=== PATIENT | male | born 2000 | race Caucasian/White ===

== ENCOUNTER 2020-10-23 12:56 | Emergency (ER) | payer BC ==
[~2020-10-23] VITALS: Ht 182.9 cm; Wt 90.7 kg
[2020-10-23] MEDS ORDERED: ONDANSETRON HCL/PF 4 MG/2 ML VIAL ONE (13:20)
--- NOTE | 2020-10-23 13:26 | NUR ---
BIB SELF C/O VOMITING X6 TODAY. PT AAOX4, VSS. RR EVEN & UNLABORED. DENIES CP, SOB, DIZZINESS AT THIS TIME. PT SEEN & EVAL'D BY DR. STRATTON. MEDICATED ORDERED, PT JEREMY WELL. WILL CONT TO MONITOR.
[2020-10-23] MEDS ORDERED: IV NS 0.9% 1,000 ML BAG IV ONE ×2 (13:30→14:00)
[2020-10-23] MEDS ORDERED: ONDANSETRON HCL/PF 4 MG/2 ML VIAL IVP ONE (13:30)
[2020-10-23 13:37] LABS: BASOPHILS % (AUTO) 0.4 % (0.0-2.0); EOSINOPHILS % (AUTO) 0.4 % (0.0-6.0); HEMATOCRIT 42 % (39-51); HEMOGLOBIN 13.3 g/dL (13.5-17.5); LYMPHOCYTES # (AUTO) 1.9 /CMM (0.8-4.8); LYMPHOCYTES % (AUTO) 19.5 % (20.0-44.0); MEAN CORPUSCULAR HGB CONC 32 g/dl (31.0-36.0); MEAN CORPUSCULAR VOLUME 83 fL (80-96); MONOCYTES # (AUTO) 0.8 /CMM (0.1-1.30); MONOCYTES % (AUTO) 8.1 % (2.0-12.0); NEUTROPHILS % (AUTO) 71.6 % (43.0-81.0); PLATELET COUNT (AUTO) 322 /CMM (150-450); RED BLOOD CELL COUNT(AUTO) 4.99 MIL/uL (4.5-6.0); WHITE BLOOD COUNT (AUTO) 9.8 K/uL (4.3-11.0)
[2020-10-23] MEDS ORDERED: PROCHLORPERAZINE EDISYLATE 10 MG/2 ML VIAL IVP ONE (14:00)
[2020-10-23] MEDS ORDERED: LORAZEPAM INJ 2 MG/ML VIAL IV ONE (14:00)
[2020-10-23 14:05] LABS: ALBUMIN 4.2 g/dL (3.4-5.0); BILIRUBIN,DIRECT 0.1 mg/dL (0.0-0.2); BILIRUBIN,TOTAL 0.6 mg/dL (0.2-1.0); CALCIUM, SERUM 10.3 mg/dL (8.5-10.1); POTASSIUM 3.5 mmol/L (3.5-5.1); TOTAL PROTEIN, SERUM 7.9 g/dL (6.4-8.2)
[2020-10-23] MEDS ORDERED: PROCHLORPERAZINE EDISYLATE 10 MG/2 ML VIAL ONE (14:05)
[2020-10-23] MEDS ORDERED: LORAZEPAM INJ 2 MG/ML VIAL ONE (14:05)
--- NOTE | 2020-10-23 14:20 | NUR ---
MEDICATED PER ERMD ORDER, PT JEREMY WELL. WILL CONT TO MONITOR.
--- NOTE | 2020-10-23 14:58 | NUR ---
PT RESTING EYES CLOSED, EASILY AROUSED WITH VERBAL STIMULI. DENIES CP, SOB, DIZZINESS, N/V AT THIS TIME. WILL CONT TO MONITOR.
[2020-10-23 15:19] LABS: BILIRUBIN,URINE NEGATIVE (NEGATIVE); COLOR,URINE YELLOW (YELLOW); LEUKOCYTE ESTERASE ,URINE NEGATIVE (NEGATIVE); NITRITE, URINE NEGATIVE (NEGATIVE); PROTEIN,URINE 100 mg/dl (NEGATIVE); UGLUCOSE NEGATIVE (NEGATIVE); UROBILINOGEN,URINE 0.2 EU/dL (0.2)
[2020-10-23 15:24] LABS: PH,URINE >8.5 (5.0-8.0)
[2020-10-23 15:40] LABS: BACTERIA,URINE None seen /HPF (None Seen); RBC,URINE 0-2 /HPF (0-2); SQUAMOUS EPITHELIAL CELL,UR 0-2 /HPF (None Seen); URINE AMORPHOUS PHOSPHATES Moderate /HPF (None Seen); WBC,URINE 0-2 /HPF (0-3)
[2020-10-23] MEDS ORDERED: ONDA4TAB11 PO (16:02)
[2020-10-23 16:08] VITALS: BP 146/70
--- NOTE | 2020-10-23 16:08 | NUR ---
Patient discharged to home in stable condition. Written and verbal after care instructions given. Patient verbalizes understanding of instruction. IV removed. Catheter intact and site benign. Pressure and 4x4 applied to site. No bleeding noted.
== END 2020-10-23 16:09 | disposition home or self-care (01) ==
LOC: ER 12:59
DX: R11.15 Cyclical vomiting syndrome unrelated to migraine (principal); F41.9 Anxiety disorder, unspecified; F12.10 Cannabis abuse, uncomplicated; Z90.49 Acquired absence of other specified parts of digestive tract; Z79.899 Other long term (current) drug therapy
CPT/HCPCS: 36415; 80048; 80076; 80307; 80320; 81001; 83690; 85025; 96361; 96374; 96375; 99284; J0780; J2060; J2405; G0480; J7030

== ENCOUNTER 2021-06-29 07:29 | Inpatient (IN) | payer BC ==
[~2021-06-29] VITALS: Ht 182.9 cm; Wt 94.8 kg
[~2021-06-29 07:29] MED LIST: ONDA4TAB11 PO
--- NOTE | 2021-06-29 07:40 | NUR ---
PT CAME TO ER C/O UPPER ABDOMINAL PAIN, NAUSEA, VOMITING SINCE 6AM TODAY. PAIN IS SHARP, RATED 8/10. DENIES BLOODY EMESIS. ADMTIS NUMBNESS AND TINGLING IN UPPER AND LOWER EXTREMITIES. BED RAILS UP, PT LAYING IN BED, EMESIS BAG GIVEN.
[2021-06-29] MEDS ORDERED: ONDANSETRON HCL/PF 4 MG/2 ML VIAL ONE (07:46)
[2021-06-29] MEDS ORDERED: MORPHINE SULFATE INJ 4 MG/ML DISP.SYRIN ONE ×2 (07:47→08:51)
[2021-06-29] MEDS ORDERED: MORPHINE SULFATE INJ 2 MG/ML DISP.SYRIN IV ONE ×2 (08:00→09:00)
[2021-06-29] MEDS ORDERED: ONDANSETRON HCL/PF 4 MG/2 ML VIAL IVP ONE (08:00)
[2021-06-29] MEDS ORDERED: IV NS 0.9% 1,000 ML BAG IV ONE (08:00)
[2021-06-29 08:08] LABS: BASOPHILS # (AUTO) 0.1 K/uL (0.0-0.2); BASOPHILS % (AUTO) 0.9 % (0.0-2.0); EOSINOPHILS % (AUTO) 2.4 % (0.0-6.0); HEMATOCRIT 46 % (39-51); HEMOGLOBIN 14.7 g/dL (13.5-17.5); LYMPHOCYTES # (AUTO) 3.3 K/uL (0.8-4.8); LYMPHOCYTES % (AUTO) 36.9 % (20.0-44.0); MEAN CORPUSCULAR HGB CONC 32 g/dl (31.0-36.0); MEAN CORPUSCULAR VOLUME 87 fL (80-96); MONOCYTES # (AUTO) 0.8 K/uL (0.1-1.30); MONOCYTES % (AUTO) 9.4 % (2.0-12.0); NEUTROPHILS # (AUTO) 4.5 K/uL (1.8-8.9); NEUTROPHILS % (AUTO) 50.4 % (43.0-81.0); PLATELET COUNT (AUTO) 375 K/uL (150-450); RED BLOOD CELL COUNT(AUTO) 5.29 MIL/uL (4.5-6.0); WHITE BLOOD COUNT (AUTO) 8.9 K/uL (4.3-11.0)
[2021-06-29 08:16] LABS: BILIRUBIN,DIRECT 0.1 mg/dL (0.0-0.2); BILIRUBIN,TOTAL 0.6 mg/dL (0.2-1.0); CALCIUM, SERUM 8.9 mg/dL (8.5-10.1); CREATININE 1.1 mg/dL (0.6-1.3); POTASSIUM 5.1 mmol/L (3.5-5.1); TOTAL PROTEIN, SERUM 7.7 g/dL (6.4-8.2)
[2021-06-29] MEDS ORDERED: LORAZEPAM INJ 2 MG/ML VIAL ONE (08:18)
[2021-06-29] MEDS ORDERED: LORAZEPAM INJ 2 MG/ML VIAL IV ONE (08:30)
--- NOTE | 2021-06-29 08:30 | NUR ---
PT TAKEN TO CT
[2021-06-29] MEDS ORDERED: IOHEXOL-300 100 ML VIAL IV ONE (08:32)
[2021-06-29] MEDS ORDERED: IV NS 0.9% 250 ML IV ONE (08:33)
[2021-06-29] MEDS ORDERED: METOCLOPRAMIDE HCL 10 MG/2 ML VIAL ONE (08:51)
[2021-06-29] MEDS ORDERED: diphenhydrAMINE HCL 50 MG/ML VIAL ONE (08:52)
[2021-06-29] MEDS ORDERED: METOCLOPRAMIDE HCL 10 MG/2 ML VIAL IV ONE (09:00)
[2021-06-29] MEDS ORDERED: diphenhydrAMINE HCL 50 MG/ML VIAL IV ONE (09:00)
--- NOTE | 2021-06-29 10:00 | NUR ---
PT LAYING IN BED, GIVEN ADDITIONAL BLANKETS
[2021-06-29] MEDS ORDERED: GABA800T11 PO (10:01)
[2021-06-29] MEDS ORDERED: HYDROMORPHONE MDV 1 MG in IV D5W 50 ML IV STA (10:27)
--- NOTE | 2021-06-29 10:27 | NUR ---
COVID SAMPLE OBTAINED AND SENT TO LAB
[2021-06-29] MEDS ORDERED: HYDROMORPHONE 1 MG/1 ML DISP.SYRIN ONE ×2 (10:32→10:46)
[2021-06-29] MEDS ORDERED: DEXTROSE 50%-WATER 50 ML DISP.SYRIN ONE (10:35)
--- NOTE | 2021-06-29 10:40 | NUR ---
STARTED NEW SALINE LOCK L FOREARM 20G. IV ON R FOREARM CAME OUT.
--- NOTE | 2021-06-29 11:29 | NUR ---
BED 321-2
--- NOTE | 2021-06-29 11:39 | NUR ---
[facility] CALLED LABORATORY MANAGER PAGED.
--- NOTE | 2021-06-29 11:40 | NUR ---
REPORT GIVEN TO ZAID GONZALEZ
[2021-06-29 12:00] VITALS: BP 153/73
--- NOTE | 2021-06-29 12:14 | NUR ---
PT TRANSFERRED TO 3W 321 VIA ACLS PROTOCOL. ALL BELONGINGS WITH PT.
[2021-06-29 12:20] VITALS: BP 153/73
--- NOTE | 2021-06-29 12:20 | NUR ---
MS RN ADMITTING NOTES RECEIVED PATIENT FROM E.R VIA [employer]. PATIENT IS AWAKE, ALERT AND ORIENTED X 4. ABLE TO MAKE NEEDS KNOWN. ON RA TOLERATING WELL, SATURATING AT 97%. VS TAKEN AND RECORDED. IV ACCESS OB LFA G#20, PATENT NAD FLUSHES WELL. ON FULL LIQUIDS DIET. PATIENT HAS COMPLAINTS OF ABDOMINAL PAIN WITH PAIN SCALE OF 9/10. PER E.R NURSE, DILAUDID GIVEN PRIOR TO TAKING PATIENT INTO THE ERMA. ORIENTED PATIENT TO ROOM AND STAFF. INSTRUCTED TO USE CALL LIGHT WHEN ASSISTANCE IS NEEDED. PATIENT VERBALIZED UNDERSTANDING. THERE WERE NO SKIN ISSUES IDENTIFIED. SAFETY PRECAUTIONS IN PLACE: BED ON LOWEST LOCKED POSITION, SIDE RAILS UP X 2, CALL LIGHT WITHIN EASY REACH. WILL CONTINUE TO MONITOR ACCORDINGLY.
[2021-06-29] MEDS ORDERED: LR IV PRN (13:30)
[2021-06-29] MEDS ORDERED: Z GUARD REMEDY 2 OZ OINT TP PRN (13:30)
[2021-06-29] MEDS ORDERED: POTASSIUM CHLORIDE IV PRN (13:30)
[2021-06-29] MEDS ORDERED: ONDANSETRON HCL/PF 4 MG/2 ML VIAL IVP PRN (13:30)
[2021-06-29] MEDS: HYDROMORPHONE INJ 2 MG/ML DISP.SYRIN IV PRN ×3 (13:34→21:50)
--- NOTE | 2021-06-29 13:44 | NUR ---
RN NOTES RECEIVED LACTIC ACID RESULT SPOKE TO TIMOTHY, 2.3, RELAYED O FRANSISCA RAMOS NP. Addendum: 06/29/21 at 1515 by ZAID LAND RN NO NEW ORDERS MADE.
--- NOTE | 2021-06-29 13:57 | NUR ---
RN NOTES PER PETER OF LAB, SPECIMEN FOR MRSA RECEIVED FROM E.R
[2021-06-29] MEDS ORDERED: IV LR 1000 ML 1,000 ML IV PRN (14:30)
[2021-06-29 16:00] VITALS: BP 146/74
[2021-06-29] MEDS ORDERED: HYDROMORPHONE 1 MG/1 ML DISP.SYRIN IV STA (16:33)
[2021-06-29] MEDS ORDERED: IV NS 0.9% 1,000 ML IV ONE (17:00)
[2021-06-29] MEDS: GABAPENTIN 400 MG CAPSULE PO SCH ×2 (17:02→22:26)
[2021-06-29] MEDS: ONDANSETRON HCL/PF 4 MG/2 ML VIAL IVP PRN ×2 (17:03→21:57)
[2021-06-29] MEDS ORDERED: LORAZEPAM INJ 2 MG/ML VIAL IV STA (18:12)
[2021-06-29] MEDS ORDERED: FENTANYL PF 100MCG/2ML AMPUL ONE (18:18)
[2021-06-29] MEDS ORDERED: ROCURONIUM BROMIDE 50 MG/5 ML ONE (18:18)
[2021-06-29] MEDS ORDERED: MIDAZOLAM HCL 2 MG/2ML VIAL ONE ×2 (18:18→19:09)
--- NOTE | 2021-06-29 18:20 | NUR ---
RN NOTES PATIENT IS FOR LAPAROSCOPIC ABDOMINAL EXPLORATORY LAPAROTOMY POSSIBLE BOWEL RESECTION POSSIBLE OSTOMY, CONSENT FOR PROCEDURE SECURED. PRE OP CHECKLIST DONE. CLOTTING FACTORS ORDERED STAT. PROCEDURE WAS EXPLAINED BY DR CRUZ (ANESTHESIOLOGIST) AND DR. JOSEPH.
[2021-06-29] MEDS ORDERED: LIDOCAINE 1% INJ 50 ML MDV IJ ONE (18:24)
[2021-06-29] MEDS ORDERED: ANESTHESIA TRAY IN PYXIS 1 EA TRAY MC ONE (18:24)
[2021-06-29] MEDS ORDERED: BUPIVACAINE MPF 0.5% W/EPI INJ 30 ML VIAL ONE (18:24)
--- NOTE | 2021-06-29 18:38 | NUR ---
RN NOTES PATIENT WAS PICKED UP BY O.R STAFF. LEFT UNIT IN STABLE CONDITION.
[2021-06-29] MEDS ORDERED: HYDROMORPHONE INJ 2 MG/ML DISP.SYRIN ONE (18:57)
[2021-06-29] MEDS ORDERED: SEVOFLURANE 250 ML BOTTLE IH ONE (19:39)
[2021-06-29 21:45] VITALS: BP 136/80
--- NOTE | 2021-06-29 21:45 | NUR ---
RN NOTES Received patient from OR, patient is non- compliant having an argument with OR nurse, try to make patient comfortable but patient is not cooperating. Per DR Ruth Ann Bustillos 's order , patient supposed to be connected to low intermittent suction but after 5 minutes. patient pulled out his NGT.explained the risk and benefits of having an NGT but patient refused to listen and refused to have another NGT
--- NOTE | 2021-06-29 21:50 | NUR ---
RN NOTES Complained of abdominal pain- Dilaudid 1mg IV given as ordered, V/S stable
--- NOTE | 2021-06-29 21:55 | NUR ---
RN NOTES Complained of feeling nauseous- Zofran 4 mg IV given as ordered
--- NOTE | 2021-06-29 23:30 | NUR ---
RN NOTES Patient's wants to go home , explained to the patient as well as to his girlfriend that if he leaves tonight , he doesn't get any prescription and he doesn't have clearance from the doctor. Risk of leaving against medical advice was also explained but patient still insist that he wants to go home.
--- NOTE | 2021-06-29 23:40 | NUR ---
RN NOTES Informed Dr. Castro regarding patient's wants to leave AMA , per he is not supposed to leave the hospital because he just had an operation and Dr. Castro will not give any prescription
--- NOTE | 2021-06-29 23:50 | NUR ---
RN NOTES Explained to the patient that the doctor secondary school teacher will not going to give him prescription mediation if he leaves AMA, the girlfriend is going to talk tot he patient
--- NOTE | 2021-06-30 00:06 | NUR ---
RN NOTES Patient complained of having difficulty urineating, got an order of In and out, from DR. Castro, order noted and carried out
--- NOTE | 2021-06-30 00:10 | NUR ---
RN NOTES Did In and out and we got 800ml of urine
[2021-06-30] MEDS ORDERED: LORAZEPAM INJ 2 MG/ML VIAL IV PRN (01:30)
--- NOTE | 2021-06-30 01:30 | NUR ---
RN NOTES Patient is feeling anxious got an order from Dr. Castro Ativan 0.5mgx1 IV order noted and carried out
--- NOTE | 2021-06-30 01:51 | NUR ---
RN NOTES Patient is so anxious- Ativan 0.5mg IV given, V/S stable
--- NOTE | 2021-06-30 02:15 | NUR ---
RN NOTES Patient is retaining urine, got an order of insertion of Hector Catheter from Dr. Castro, order noted and carried out
--- NOTE | 2021-06-30 02:30 | NUR ---
RN NOTES Complained of abdominal pain and feeling nauseous- Dilaudid 1mg IV and Zofran 4mg IV gven as ordered, V/S stable
[2021-06-30] MEDS: ONDANSETRON HCL/PF 4 MG/2 ML VIAL IVP PRN (02:33)
[2021-06-30] MEDS: HYDROMORPHONE INJ 2 MG/ML DISP.SYRIN IV PRN ×3 (02:33→13:22)
[2021-06-30 06:04] LABS: BASOPHILS % (AUTO) 0.1 % (0.0-2.0); HEMATOCRIT 40 % (39-51); HEMOGLOBIN 12.6 g/dL (13.5-17.5); LYMPHOCYTES # (AUTO) 0.7 K/uL (0.8-4.8); LYMPHOCYTES % (AUTO) 6.2 % (20.0-44.0); MEAN CORPUSCULAR HGB CONC 32 g/dl (31.0-36.0); MEAN CORPUSCULAR VOLUME 86 fL (80-96); MONOCYTES # (AUTO) 0.2 K/uL (0.1-1.30); MONOCYTES % (AUTO) 1.7 % (2.0-12.0); NEUTROPHILS # (AUTO) 10.1 K/uL (1.8-8.9); PLATELET COUNT (AUTO) 340 K/uL (150-450)
[2021-06-30 06:30] LABS: ALBUMIN 3.7 g/dL (3.4-5.0); BILIRUBIN,TOTAL 0.8 mg/dL (0.2-1.0); CALCIUM, SERUM 8.2 mg/dL (8.5-10.1); CREATININE 1.1 mg/dL (0.6-1.3); MAGNESIUM 1.8 mg/dL (1.8-2.4); PHOSPHORUS 3.3 mg/dL (2.5-4.9)
[2021-06-30 06:33] LABS: POTASSIUM 4.6 mmol/L (3.5-5.1)
--- NOTE | 2021-06-30 06:48 | NUR ---
RN NOTES Sleeping but arousable, no pain noted, no SOB, call light within reach, siderailsupx2, pt. needs attended
[2021-06-30] MEDS: GABAPENTIN 400 MG CAPSULE PO SCH ×2 (08:59→12:34)
[2021-06-30 09:08] VITALS: BP 125/67
--- NOTE | 2021-06-30 09:41 | NUR ---
RN NOTES PATIENT REQUESTED FOR KUO CATHETER BE REMOVED. CURRENTLY DRAINED 600CC OF YELLOW-COLORED URINE. PER PATIENT, HE "WANTS TO TRY TO PEE" AND WANTS THE CATHETER OUT. KUO CATH REMOVED, TOLERATED PROCEDURE WELL.
[2021-06-30] MEDS ORDERED: IBUPROFEN 400 MG TABLET PO PRN (11:30)
--- NOTE | 2021-06-30 11:49 | NUR ---
RN NOTES PATIENT WAS SEEN BY DR. RAMOS AND FERNANDA PEACOCK, FROM SURGERY AND INFORMED ABOUT PLAN OF CARE.
[2021-06-30] MEDS ORDERED: NAPR-1164 PO (11:54)
--- NOTE | 2021-06-30 12:29 | NUR ---
RN NOTES PER PATIENT, HE JUST PASSED GAS. WILL TRY CLEAR LIQUIDS FOR NOW AND MONITOR FOR TOLERANCE.
--- NOTE | 2021-06-30 14:16 | NUR ---
RN NOTES PATIENT ABLE TO TOLERATE CLEAR LIQUIDS AND SOFT DIET AND PASS GAS. INFORMED DR. RAMOS; PER DR RAMOS, OK FOR PATIENT TO GO HOME. PREVIOUSLY CLEARED BY SURGERY FOR D/C WELL.
--- NOTE | 2021-06-30 15:09 | NUR ---
RN NOTES PATIENT DISCHARGED TO HOME TODAY. DISCHARGE INSTRUCTIONS AND EDUCATION PROVIDED TO PATIENT. DISCHARGE FORM AND BELONGINGS LIST FORM SIGNED BY PATIENT AND ALL BELONGINGS ACCOUNTED FOR. NAME ARMBAND AND IV LINES REMOVED, NO BLEEDING NOTED. PATIENT ABLE TO AMBULATE W/ STEADY GAIT. POST-OP INSTRUCTIONS AND EDUCATION PROVIDED AND UNDERSTOOD BY PATIENT. PICKED UP BY GIRLFRIEND VIA PRIVATE CAR. CHARGE NURSE AND MD AWARE OF DISCHARGE.
== END 2021-06-30 15:00 | disposition home or self-care (01) | DRG 357 ==
LOC: ER 07:32 → MED 11:32
PROVIDERS: ADMIT Nurse Practitioner Acute Care; ATTEND Nurse Practitioner Acute Care
PROC: 0WJG0ZZ Inspection of Peritoneal Cavity, Open Approach (ICD-10-PCS; principal; 2021-06-29)
DX: K56.7 Ileus, unspecified (principal); E87.2 Acidosis; Z90.49 Acquired absence of other specified parts of digestive tract; Z20.822 Contact with and (suspected) exposure to COVID-19; Z79.899 Other long term (current) drug therapy; G40.909 Epilepsy, unspecified, not intractable, without status epilepticus; K44.9 Diaphragmatic hernia without obstruction or gangrene; K40.20 Bilateral inguinal hernia, without obstruction or gangrene, not specified as recurrent; K43.9 Ventral hernia without obstruction or gangrene; F12.90 Cannabis use, unspecified, uncomplicated
CPT/HCPCS: 36415; 76700-TC; 80048-TC; 80053-TC; 80061-TC; 80076-TC; 83605-TC; 83690-TC; 83735-TC; 84100-TC; 85025-TC; 85610-TC; 85730-TC; 86850-TC; 87081-TC; C9803; G0378; J0330; J0690; J1100; J1170; J1200; J2060; J2250; J2270; J2405; J2704; J2765; J3010; J3490; J7030; J7050; J7060; J7120; Q9967

== ENCOUNTER 2021-07-16 14:29 | Emergency (ER) | payer BC ==
[~2021-07-16] VITALS: Ht 182.9 cm; Wt 97.5 kg
[~2021-07-16 14:29] MED LIST changes: +GABA800T11 PO; +NAPR-1164 PO; -ONDA4TAB11 PO
--- NOTE | 2021-07-16 14:31 | NUR ---
BIB PT GIRLFRIEND C/O UPPER ABDOMINAL PAIN. PT STATED HE HAS A SEIZURE THIS MORNING, NO ORAL TRAUMA.PT STATED HE FEELS NAUSEOUS AND IS VOMITTING. SEIZURE PRECAUTIONS APPLLIED. VITAL ARE WITHIN NORMAL LIMITS. BREATHING IS REGULAR AND UNLABORED. WILL CONTINUE TO MONITOR.
--- NOTE | 2021-07-16 14:31 | NUR ---
Note undone in EDM - 07/16/21 at 1644 by EDWINO BIB PT GIRLFRIENT C/O UPPER ABDOMINAL PAIN. PT STATED HE HAS A SEIZURE THIS MORNING, NO ORAL TRAUMA.PT STATED HE FEELS NAUSEOUS AND IS VOMITTING. SEIZURE PRECAUTIONS APPLLIED. VITAL ARE WITHIN NORMAL LIMITS. BREATHING IS REGULAR AND UNLABORED. WILL CONTINUE TO MONITOR.
--- NOTE | 2021-07-16 14:39 | NUR ---
IV ESTABLISHED #20G R AC. LABS WERE DRAWWN AND SENT. PT IS UNABLE TO PROVIDE URINE SAMPLE AT THIS TIME.
[2021-07-16] MEDS ORDERED: ONDANSETRON HCL/PF 4 MG/2 ML VIAL ONE (14:54)
[2021-07-16] MEDS ORDERED: ONDANSETRON HCL/PF 4 MG/2 ML VIAL IV ONE (15:00)
[2021-07-16] MEDS ORDERED: IV NS 0.9% 1,000 ML BAG IV ONE (15:00)
--- NOTE | 2021-07-16 15:00 | NUR ---
DR MORALEZ AT BEDSIDE
[2021-07-16 15:13] LABS: BASOPHILS % (AUTO) 0.4 % (0.0-2.0); EOSINOPHILS % (AUTO) 0.4 % (0.0-6.0); HEMATOCRIT 43 % (39-51); HEMOGLOBIN 14.1 g/dL (13.5-17.5); LYMPHOCYTES # (AUTO) 1.2 K/uL (0.8-4.8); LYMPHOCYTES % (AUTO) 12.5 % (20.0-44.0); MEAN CORPUSCULAR HGB CONC 33 g/dl (31.0-36.0); MEAN CORPUSCULAR VOLUME 86 fL (80-96); MONOCYTES # (AUTO) 0.5 K/uL (0.1-1.30); MONOCYTES % (AUTO) 4.7 % (2.0-12.0); PLATELET COUNT (AUTO) 323 K/uL (150-450); RED BLOOD CELL COUNT(AUTO) 5.02 MIL/uL (4.5-6.0); WHITE BLOOD COUNT (AUTO) 9.7 K/uL (4.3-11.0)
[2021-07-16 15:24] LABS: CARBON DIOXIDE 23 mmol/L (21-32); CHLORIDE 103 mmol/L (98-107); CREATININE 1.2 mg/dL (0.6-1.3); GLUCOSE 103 mg/dL (74-106); POTASSIUM 4.8 mmol/L (3.5-5.1); SODIUM SERUM 136 mmol/L (136-145); UREA NITROGEN, BLOOD 9 mg/dL (7-18)
[2021-07-16] MEDS ORDERED: MORPHINE SULFATE INJ 4 MG/ML DISP.SYRIN ONE ×3 (15:28→17:00)
[2021-07-16] MEDS ORDERED: LORAZEPAM INJ 2 MG/ML VIAL ONE (15:28)
[2021-07-16 15:29] LABS: ALANINE AMINOTRANSFERASE 57 U/L (12-78); ALKALINE PHOSPHATASE 65 U/L (46-116); ASPARTATE AMINOTRANSFERASE 41 U/L (15-37); BILIRUBIN,TOTAL 0.5 mg/dL (0.2-1.0); TOTAL PROTEIN, SERUM 7.4 g/dL (6.4-8.2)
[2021-07-16] MEDS ORDERED: LORAZEPAM INJ 2 MG/ML VIAL IV ONE (15:30)
[2021-07-16] MEDS ORDERED: MORPHINE SULFATE INJ 2 MG/ML DISP.SYRIN IV ONE ×2 (15:30→17:00)
[2021-07-16 15:33] LABS: LIPASE < 10 U/L (73-393)
[2021-07-16 15:35] LABS: ALBUMIN < 0.6 g/dL (3.4-5.0)
[2021-07-16] MEDS ORDERED: METOCLOPRAMIDE HCL 10 MG/2 ML VIAL ONE (15:49)
[2021-07-16] MEDS ORDERED: diphenhydrAMINE HCL 50 MG/ML VIAL ONE (15:49)
[2021-07-16] MEDS ORDERED: METOCLOPRAMIDE HCL 10 MG/2 ML VIAL IV ONE (16:00)
[2021-07-16] MEDS ORDERED: diphenhydrAMINE HCL 50 MG/ML VIAL IV ONE (16:00)
--- NOTE | 2021-07-16 16:47 | NUR ---
ULTRASOUND AT BEDSIDE
[2021-07-16] MEDS ORDERED: IOHEXOL-300 100 ML VIAL IV ONE (17:08)
[2021-07-16] MEDS ORDERED: IV NS 0.9% 250 ML IV ONE (17:08)
[2021-07-16] MEDS ORDERED: CT SWABBABLE VALVE TRANS SET 1 EA INFUS.SET MC ONE (17:08)
--- NOTE | 2021-07-16 17:12 | NUR ---
PT TAKEN TO CT
[2021-07-16 17:19] LABS: ALCOHOL, BLOOD < 3 mg/dL (0-0)
[2021-07-16] MEDS ORDERED: HYDROMORPHONE 1 MG/1 ML DISP.SYRIN IV ONE (18:30)
[2021-07-16] MEDS ORDERED: HYDR-4303 PO (18:34)
[2021-07-16] MEDS ORDERED: METO-295 PO (18:34)
[2021-07-16] MEDS ORDERED: DICY10CA37 PO (18:34)
[2021-07-16] MEDS ORDERED: HYDROMORPHONE 1 MG/1 ML DISP.SYRIN ONE (18:36)
--- NOTE | 2021-07-16 19:18 | NUR ---
PATIENT LEFT AMA. DR MORALEZ EXPLAIN RISKS OF GOING HOME. PATIENT VITALS WERE WITHIN NORMAL LIMMITS. BREATHING REGULAR AND UNLABORED. IV removed. Catheter intact and site benign. Pressure and 4x4 applied to site. No bleeding noted.
[2021-07-16 19:19] VITALS: BP 134/62
[2021-07-16 20:07] LABS: BILIRUBIN,URINE NEGATIVE (NEGATIVE); COLOR,URINE YELLOW (YELLOW); LEUKOCYTE ESTERASE ,URINE NEGATIVE (NEGATIVE); NITRITE, URINE NEGATIVE (NEGATIVE); PROTEIN,URINE TRACE mg/dl (NEGATIVE); UGLUCOSE NEGATIVE (NEGATIVE); UROBILINOGEN,URINE 0.2 EU/dL (0.2)
[2021-07-16 20:16] LABS: BACTERIA,URINE None seen /HPF (None Seen); RBC,URINE 0-2 /HPF (0-2); SQUAMOUS EPITHELIAL CELL,UR 0-2 /HPF (None Seen); URINE AMORPHOUS PHOSPHATES Moderate /HPF (None Seen); WBC,URINE 0-2 /HPF (0-3)
== END 2021-07-16 19:22 | disposition left against medical advice (07) ==
LOC: ER 14:34
DX: R10.13 Epigastric pain (principal); R11.2 Nausea with vomiting, unspecified; F41.9 Anxiety disorder, unspecified; F12.90 Cannabis use, unspecified, uncomplicated; Z90.49 Acquired absence of other specified parts of digestive tract; Z79.899 Other long term (current) drug therapy
CPT/HCPCS: 36415; 74177; 76700; 80048; 80076; 80307; 80320; 81001; 83605; 83690; 85025; 96361; 96374; 96375; 96376; 99285; J1170; J1200; J2060; J2270 ×2; J2405; J2765; J7030; J7050; Q9967; G0480

== ENCOUNTER 2021-07-25 09:15 | Emergency (ER) | payer BC ==
[~2021-07-25] VITALS: Ht 182.9 cm; Wt 97.5 kg
[~2021-07-25 09:15] MED LIST changes: +DICY10CA37 PO; +HYDR-4303 PO; +METO-295 PO
--- NOTE | 2021-07-25 09:26 | NUR ---
CAME IN FOR LOWER ABDOMINAL PAIN, NAUSEA AND VOMITING. PATIENT STATES HE HAD SEIZURE THIS MORNING. NO ORAL TRAUMA AND UNWITNESSED. TO ER BED 12, HOOKED TO MONITOR, SEIZURE PRECAUTION APPLIED. CHANGED TO HOSP GOWN, WARM BLANKET ROVIDED, AAO x 4. BREATHING EVEN AND UNLABORED. DR SMITH AT BEDSIDE
[2021-07-25] MEDS ORDERED: IV NS 0.9% 500 ML BAG IV ONE (09:30)
[2021-07-25] MEDS ORDERED: LORAZEPAM INJ 2 MG/ML VIAL IV ONE (09:30)
[2021-07-25] MEDS ORDERED: MORPHINE SULFATE INJ 2 MG/ML DISP.SYRIN IV ONE (09:30)
[2021-07-25] MEDS ORDERED: ONDANSETRON HCL/PF 4 MG/2 ML VIAL IVP ONE (09:30)
[2021-07-25] MEDS ORDERED: LORAZEPAM INJ 2 MG/ML VIAL ONE (09:36)
[2021-07-25] MEDS ORDERED: MORPHINE SULFATE INJ 4 MG/ML DISP.SYRIN ONE (09:36)
[2021-07-25] MEDS ORDERED: ONDANSETRON HCL/PF 4 MG/2 ML VIAL ONE (09:36)
[2021-07-25 09:52] LABS: BASOPHILS # (AUTO) 0.1 K/uL (0.0-0.2); BASOPHILS % (AUTO) 0.5 % (0.0-2.0); EOSINOPHILS % (AUTO) 1.6 % (0.0-6.0); HEMATOCRIT 42 % (39-51); HEMOGLOBIN 13.7 g/dL (13.5-17.5); LYMPHOCYTES # (AUTO) 3.6 K/uL (0.8-4.8); LYMPHOCYTES % (AUTO) 31.9 % (20.0-44.0); MEAN CORPUSCULAR HGB CONC 33 g/dl (31.0-36.0); MEAN CORPUSCULAR VOLUME 86 fL (80-96); MONOCYTES # (AUTO) 0.9 K/uL (0.1-1.30); NEUTROPHILS # (AUTO) 6.5 K/uL (1.8-8.9); PLATELET COUNT (AUTO) 382 K/uL (150-450); RED BLOOD CELL COUNT(AUTO) 4.85 MIL/uL (4.5-6.0); WHITE BLOOD COUNT (AUTO) 11.2 K/uL (4.3-11.0)
[2021-07-25 10:15] LABS: ALBUMIN 3.6 g/dL (3.4-5.0); BILIRUBIN,DIRECT 0.1 mg/dL (0.0-0.2); CALCIUM, SERUM 9.1 mg/dL (8.5-10.1); CREATININE 1.1 mg/dL (0.6-1.3); POTASSIUM 3.9 mmol/L (3.5-5.1)
[2021-07-25 10:29] LABS: BILIRUBIN,TOTAL 0.5 mg/dL (0.2-1.0)
--- NOTE | 2021-07-25 10:48 | NUR ---
DR SMITH TALKING TO THE PATIENT
[2021-07-25] MEDS ORDERED: LORA-259 PO (10:50)
[2021-07-25] MEDS ORDERED: ONDA4TAB5 PO (10:50)
--- NOTE | 2021-07-25 11:08 | NUR ---
IV removed. Catheter intact and site benign. Pressure and 4x4 applied to site. No bleeding noted.Patient discharged to home in stable condition. Written and verbal after care instructions given. Patient verbalizes understanding of instruction.
[2021-07-25 11:09] VITALS: BP 151/67
== END 2021-07-25 11:09 | disposition home or self-care (01) ==
LOC: ER 09:16
DX: R11.15 Cyclical vomiting syndrome unrelated to migraine (principal); F41.9 Anxiety disorder, unspecified; Z90.49 Acquired absence of other specified parts of digestive tract; Z79.2 Long term (current) use of antibiotics; Z79.899 Other long term (current) drug therapy
CPT/HCPCS: 36415; 80048; 80076; 83690; 85025; 96361; 96374; 96375; 99284; J2060; J2270; J2405; J7030